=== PATIENT | female | born 1980 | race Caucasian/White ===

== ENCOUNTER → 2017-03-07 | Outpatient (CLI) | payer OTHER ==
--- NOTE | 2017-03-07 15:43 | DIAGNOSTIC IMAGING REPORT ---
MRI OF THE BRAIN WITHOUT IV CONTRAST CLINICAL HISTORY: Left facial swelling. Headache and numbness. COMPARISON STUDY: No priors. TECHNIQUE: MRI of the brain was performed utilizing various T1 and T2-weighted sequences in the axial, sagittal, and coronal planes. IV contrast was not administered for this examination. The examination is significantly degraded by open MRI technique as well as motion artifact. FINDINGS: Brain parenchyma: There is a subcentimeter focus of T2 signal abnormality seen within the right-sided periventricular white matter on coronal FLAIR image #17. This is of doubtful significance as an isolated finding. The brain parenchyma is otherwise normal in appearance. There is no hemorrhage or mass effect. There is no restricted diffusion to suggest acute ischemia. Otoole-white matter differentiation is preserved. No extra-axial fluid collection is seen. The cerebellar tonsils are normal in configuration. Ventricles, sulci, and cisterns: Normal in configuration. Pituitary and sella: Unremarkable. Intracranial vasculature: Normal flow voids are maintained at the skull base. Orbits: The bony orbits are grossly intact. Orbital contents are normal in appearance. Sinuses and mastoids: Clear. Calvarium: Unremarkable. Cervical cord: Partially visualized cervical spinal cord is normal in morphology and signal intensity. IMPRESSION: No acute intracranial abnormality. Electronically signed by: Nahum Land M.D. 03/07/2017 3:42 PM Dictated Date/Time: 03/07/2017 3:36 PM
--- NOTE | 2017-03-07 16:10 | DIAGNOSTIC IMAGING REPORT ---
MRI THE NECK NO CONTRAST CLINICAL HISTORY: Left facial swelling, numbness, headache. COMPARISON STUDY: No previous studies for comparison. FINDINGS: Imaging was performed in the coronal and axial planes. No contrast was administered. The patient was imaged under 0.7 [facility] open MRI scanner. No soft tissue masses are visualized. There is no pathologic marrow replacement. No intramuscular masses are visualized. There is no evidence of pathologic muscular edema. No salivary gland masses are visualized on this noncontrast study. There is no pathologic adenopathy identified on this noncontrast study. IMPRESSION: No abnormalities identified. Electronically signed by: Aldair Arreola M.D. 03/07/2017 4:09 PM Dictated Date/Time: 03/07/2017 4:06 PM
== END | disposition home or self-care (01) ==
LOC: C.OPENMRI 14:00
PROVIDERS: ATTEND Physician Assistant Medical
DX: R22.0 Localized swelling, mass and lump, head (principal); R20.0 Anesthesia of skin; R51 Headache